=== PATIENT | female | born 1980 | race Caucasian/White ===

== ENCOUNTER 2016-08-08 20:06 | Emergency (ER) | payer SELFPAY ==
[~2016-08-08] VITALS: Ht 162.6 cm; Wt 72.6 kg
[~2016-08-08 20:06] MED LIST: ALBU1.257 IN
[2016-08-08 20:43] VITALS: BP 153/72
[2016-08-08] MEDS ORDERED: methylPREDNISolone SOD SUCC 125 MG/2 ML VL IM ONE (21:45)
== END 2016-08-08 22:06 | disposition home or self-care (01) ==
LOC: ER 20:22
DX: L30.9 Dermatitis, unspecified (principal); J45.909 Unspecified asthma, uncomplicated; Z79.899 Other long term (current) drug therapy
CPT/HCPCS: 96372; 99283; J2930

== ENCOUNTER 2016-09-14 19:22 | Emergency (ER) | payer SELFPAY ==
[~2016-09-14] VITALS: Ht 162.6 cm; Wt 86.6 kg
[2016-09-14 19:55] VITALS: BP 134/75
[2016-09-14] MEDS ORDERED: IPRATROPIUM BROM 0.5 MG/2.5ML INH SOL NEB ONE (20:30)
[2016-09-14] MEDS ORDERED: ALBUTEROL SULF 2.5 MG/0.5ML(0.5%) NEB SOLN NEB ONE (20:30)
[2016-09-15] MEDS ORDERED: methylPREDNISolone SOD SUCC 125 MG/2 ML VL IM ONE (01:30)
[2016-09-15] MEDS ORDERED: IPRATROPIUM BROM 0.5 MG/2.5ML INH SOL NEB ONE (01:30)
[2016-09-15] MEDS ORDERED: ALBUTEROL SULF 2.5 MG/0.5ML(0.5%) NEB SOLN NEB ONE (01:30)
== END 2016-09-15 02:48 | disposition home or self-care (01) ==
LOC: ER 19:36
DX: J45.909 Unspecified asthma, uncomplicated (principal)
CPT/HCPCS: 71010; 94640; 96372; 99284; J2930